=== PATIENT | female | born 1950 | race Caucasian/White ===

== ENCOUNTER 2017-02-28 11:04 | Emergency (ER) | payer MEDICARE, OTHER ==
[~2017-02-28] VITALS: Ht 160 cm; Wt 79.5 kg
[2017-02-28 11:03] VITALS: BP 156/64; PULSE 70; RESP 20; O2SAT 100
[2017-02-28 11:09] VITALS: BP 156/64; PULSE 60
[2017-02-28 11:12] VITALS: BP 151/70; PULSE 63
[2017-02-28 11:13] VITALS: BP 148/80; PULSE 67
[2017-02-28 11:24] LABS: BASOPHILS % (AUTO) 0.3 % (0-3); Mean Corpuscular Hemoglobin 30.8 pg (27.0-35.0); NEUTROPHILS % (AUTO) 74.9 % (40-74); Platelet Count 290 bil/L (150-400)
--- NOTE | 2017-02-28 11:48 | ED.REPORT ---
HPI-Dizziness / Weakness Date of Service Feb 28, 2017 ED Provider: Virgen Verduzco History of Present Illness: vomit 2 times this am. dizzy first. head movement makes it worse, much worse today, mild yesterday. Seen at [facility] in [facility]. no DM, normally helathy Nursing Notes Stated Complaint: DIZZINESS/NAUSEA Chief Complaint: General Complaint Nursing Notes Reviewed: Yes Allergies: Coded Allergies: No Known Allergies (Unverified , 02/28/17) General Time Seen by MD: 11:47 Chief Complaint Dizzy, Other (vomiting) Hx Obtained From: Patient Onset Occurred: 5 - 8 hours ago Symptom Duration: Since onset Location: : No pain Risk Factors CVA Risk Stratification Age >60No Anticoag/bleed diathesis, No Atrial fibrillation, No Carotid stenosis , No Clotting disorder, No Diabetes mellitus, No EtOH use, No Hyperlipidemia, No Hypertension, No Oral contraceptive, No Other, No Prior CVA/TIA, No Smoking Risk factors reviewed Past Medical History Past Medical History Denies: Asthma, Diabetes mellitus, Hypertension Past Surgical History vaginal fistula repair Reports: Appendectomy Smoking History Never Smoker Social History Alcohol Use: Denies alcohol use Drug Use: Denies drug use Occupation lives in 2 story house 02/28/2017 Ambulatory Status Independent Review of Systems Basic Review of Systems : No dysuria, No frequency Allergy / Immune: No allergy Physical Exam Initial Vital Signs Vital Signs (First) Date Time Temp Pulse Resp B/P Pulse Ox O2 Delivery O2 Flow Rate FiO2 02/28/17 11:03 36.5 70 20 156/64 100 Room Air Initial VS: Reviewed, Vital signs normal ENT: Mucous membranes moist, Conjunctiva normal, No scleral icterus Neck: Supple, Non-tender, Full range of motion Abdomen / GI: Soft, Non-tender, No guarding, No rebound, No distention Back: No CVA tenderness Lymphatic: No lymphadenopathy Extremities: Vascular intact, Neuro intact, No swelling, No tenderness Skin: Warm, Dry, No cyanosis Psychiatric: Mood/affect normal, Behavior normal, Normal thought content General/Constitutional: Awake, Alert, No acute distress, Well appearing, Well developed, Well hydrated Head / Eyes: Atraumatic, Normocephalic, PERRL, EOMI Respiratory / Chest: Atraumatic, Breath sounds NL, Breath sounds = bilat, No respiratory distress Cardiovascular: Heart rate NL, Regular rhythm, Heart sounds NL, No gallop Neurologic: Oriented X3, Speech NL, No motor deficits Interpretation & Diagnostics Lab Results Interpretation Result Diagram: 02/28/17 1115 02/28/17 1115 Test 02/28/17 11:15 White Blood Count 7.2th/mm3 (3.8-10.1) Red Blood Count 4.45mil/mm3 (3.90-5.20) Hemoglobin 13.7g/dL (12.0-15.6) Hematocrit 40.5% (35.0-46.0) Mean Corpuscular Volume 91.0fL (81-100) Mean Corpuscular Hemoglobin 30.8pg (27.0-35.0) Mean Corpuscular Hemoglobin Concent 33.8% (32.0-37.0) Red Cell Distribution Width 13.7% (12.3-15.4) Platelet Count 290bil/L (150-400) Neutrophils (%) (Auto) 74.9% (40-74) Lymphocytes (%) (Auto) 18.5% (14-46) Monocytes (%) (Auto) 5.0% (4-12) Eosinophils (%) (Auto) 1.0% (0-5) Basophils (%) (Auto) 0.3% (0-3) Sodium Level 140mEq/L (134-144) Potassium Level 4.1mEq/L (3.5-5.2) Chloride Level 105mEq/L (97-108) Carbon Dioxide Level 19mmol/L (18-29) Blood Urea Nitrogen 17mg/dL (8-27) Creatinine 0.73mg/dL (0.57-1.00) Estimat Glomerular Filtration Rate 114mL/min (>59) Glucose Level 125mg/dL (60-99) Calcium Level 9.2mg/dL (8.5-10.1) Total Bilirubin 0.6mg/dL (0.0-1.2) Aspartate Amino Transf (AST/SGOT) 16U/L (0-50) Alanine Aminotransferase (ALT/SGPT) 18U/L (0-32) Alkaline Phosphatase 64U/L (25-165) Troponin T 0.010ug/L (0.0-0.011) Total Protein 7.2g/dL (6.4-8.4) Albumin 4.0g/dL (3.4-5.0) Hold Anderson Top Tube Received (Received) CT Head Interpretation PROCEDURE: CT BRAIN WITHOUT CONTRAST ([id number]) INDICATIONS: dizzy TECHNIQUE: Noncontrast 4.5 mm thick angled axial sections acquired from the foramen magnum to the vertex, with coronal reformats. COMPARISON: None. FINDINGS: Image quality: Excellent. CSF spaces: Basal cisterns are patent. No extra-axial fluid collections. Ventricles are normal in size and shape. Brain: No midline shift. No intracranial masses or hemorrhage. Woodard-white matter interface is normal. Skull and face: Calvarium and visualized facial bones are intact, without suspicious lesions. There is gas in the skull base soft tissues extending into the superior neck (se 2 im 1-8) which is likely iatrogenic venous gas. Sinuses: Visualized sinuses and mastoids are clear. IMPRESSION: 1. No CT evidence of acute intracranial pathology. 2. Minimal skull base gas is likely iatrogenic within the venous system related to IV placement. Please correlate for clinical history of skull base trauma. Dictated by: Noe Rome M.D. on 02/28/2017 at 12:46 Approved by: Noe Rome M.D. on 02/28/2017 at 12:52 Re-Eval/Medical Decision Med Decision/Clinical Course Consult with Neurosurgery "Dr Saleh at [facility] [place]. No concerns about bubbles . Patient is symptom free. moving her head without difficulty. No sign of any tumor or skull fracture Patient Discharge & Departure Impression: Primary Impression: Vertigo Disposition: Home Patient Instructions: Benign Paroxysmal Positional Vertigo (ED) Additional Instructions: You have had a great response to the medication. Continue with the meclizine 25 mg 1 to 2 pills 3 times a day as needed for dizziness. Can use zofran 4 mg up to 2 times a day as needed for vomiting. Please establish in primary care. Consider Dr. Diana Barr. I am sorry this is happening.1 REturn with any concerns. Referrals: Diana Barr MD EDSupervising Provider for APC: James Owens MD, Jennifer K MD Baerg, Sue ARNP Feb 28, 2017 11:48
[2017-02-28] MEDS ORDERED: Ondansetron 2 mg/mL 2 mL Inj IVPUSH ONE (12:00)
[2017-02-28] MEDS ORDERED: 0.9% Sodium Chloride 1,000 ML IV ONE (12:00)
--- NOTE | 2017-02-28 12:54 | DRSVH ---
PROCEDURE: CT BRAIN WITHOUT CONTRAST ([id number]) INDICATIONS: dizzy TECHNIQUE: Noncontrast 4.5 mm thick angled axial sections acquired from the foramen magnum to the vertex, with c oronal reformats. COMPARISON: None. FINDINGS: Image quality: Excellent. CSF spaces: Basal cisterns are patent. No extra-axial fluid collections. Ventricles are normal in size and shape. Brain: No midline shift. No intracranial masses or hemorrhage. Woodard-white matter interface is norm al. Skull and face: Calvarium and visualized facial bones are intact, without suspicious lesions. There is gas in the skull base soft tissues extending into the superior neck (se 2 im 1-8) which is likely iatrogenic venous gas. Sinuses: Visualized sinuses and mastoids are clear. IMPRESSION: 1. No CT evidence of acute intracranial pathology. 2. Minimal skull base gas is likely iatrogenic within the venous system related to IV placement. Plea se correlate for clinical history of skull base trauma. Dictated by: Noe Rome M.D. on 02/28/2017 at 12:46 Approved by: Noe Rome M.D. on 02/28/2017 at 12:52
[2017-02-28 13:04] VITALS: BP 151/61; PULSE 71; RESP 20; O2SAT 98
[2017-02-28 15:03] VITALS: BP 158/68; PULSE 77; RESP 20; O2SAT 99
== END 2017-02-28 15:04 | disposition home or self-care (01) ==
LOC: SED 11:04
DX: R42 Dizziness and giddiness (principal); R11.10 Vomiting, unspecified
CPT/HCPCS: 36415; 70450; 80053; 84484; 85025; 93005; 96361; 96374; 96375; 99285; J1200; J2405; J7030